=== PATIENT | male | born 1990 | race Caucasian/White ===

== ENCOUNTER 2019-01-14 13:07 | Emergency (ER) | payer SELFPAY ==
[~2019-01-14] VITALS: Ht 190.5 cm; Wt 100.0 kg
[~2019-01-14 13:07] MED LIST: BACTRIM DS1 TAB PO; CIPROFLOXACN500 MG PO; KEFLEX500 M1 PO; ULTRAM50 M1 PO
[2019-01-14 13:45] LABS: IMMATURE GRANULOCYTES 0.4 % (0.0-5.0); MEAN CORPUSCULAR HGB 29.7 pG CALC (26.0-32.0); MEAN CORPUSCULAR HGB CONC 34.4 g/L CALC (32.0-36.0); NEUT# 3.96 thou/uL (1.82-7.42); RED BLOOD COUNT 5.01 mill/uL (4.70-6.10)
[2019-01-14 13:49] LABS: HEMATOCRIT 43.3 % (39.0-50.0); HEMOGLOBIN 14.9 g/dl (14.0-18.0); MEAN CELL VOLUME 86.4 fL CALC (80.0-100.0)
[2019-01-14 13:59] LABS: ALKALINE PHOSPHATASE 76 u/l (38-126); BUN 9 mg/dL (9-20); BUN/CREATININE RATIO 13 (12-20 (CALC)); CHLORIDE 105 mmol/l (95-108); CREATININE 0.7 mg/dL (0.7-1.3); GFR > 60 ML/MIN (>=60 (CALC)); GFR FOR AFR.AMER. > 60 ML/MIN (>=60 (CALC)); POTASSIUM 4.4 mmol/l (3.5-5.1); SGOT/AST 25 u/l (17-59); SODIUM 141 mmol/l (137-146)
[2019-01-14 14:08] LABS: ALBUMIN 4.9 g/dL (3.2-5.0); ANION GAP 15 (6-22 (CALC)); BILIRUBIN, TOTAL 0.6 mg/dL (0.0-1.4); CARBON DIOXIDE 25 mmol/l (22-30); TOTAL PROTEIN 7.5 g/dL (6.3-8.2)
[2019-01-14 16:08] VITALS: BP 150/85
== END 2019-01-14 16:08 | disposition home or self-care (01) | DRG 816 ==
LOC: ED 13:07
DX: R59.1 Generalized enlarged lymph nodes (principal); F17.200 Nicotine dependence, unspecified, uncomplicated
CPT/HCPCS: Q9967

== ENCOUNTER 2019-02-07 07:02 | Day surgery (SDC) | payer SELFPAY ==
[~2019-02-07] VITALS: Ht 193 cm; Wt 95.3 kg
[2019-02-07] MEDS ORDERED: PERCOCET 5/325M1 TAB PO ×2 (10:25→10:26)
[2019-02-07 10:45] VITALS: BP 125/63
== END 2019-02-07 11:05 | disposition home or self-care (01) | DRG 804 ==
LOC: ORM 07:02
PROVIDERS: ATTEND Surgery
PROC: 07B10ZX Excision of Right Neck Lymphatic, Open Approach, Diagnostic (ICD-10-PCS; principal; 2019-02-07)
DX: I88.8 Other nonspecific lymphadenitis (principal); F17.210 Nicotine dependence, cigarettes, uncomplicated
CPT/HCPCS: J1100